=== PATIENT | male | born 1950 | race Caucasian/White ===

== ENCOUNTER 2022-07-17 07:47 | Day surgery (SDC) | payer OTHER, MEDICARE ==
[2022-07-12 16:03] VITALS: BMI 27.9
[2022-07-17] MEDS ORDERED: LIDOCAINE HCL 2% 100 MG/5 ML DISP.SYRIN ONE (08:56)
[2022-07-17] MEDS ORDERED: MIDAZOLAM HCL 2 MG/2 ML SINGLE DOSE VIAL ONE (08:56)
[2022-07-17] MEDS ORDERED: PROPOFOL 20 ML ONE (08:56)
[2022-07-17] MEDS ORDERED: LIDOCAINE HCL 2% (20ML MULTI-DOSE VIAL) ONE (09:37)
[2022-07-17 09:49] VITALS: RESP 16; TEMP 97.6
[2022-07-17 10:06] VITALS: BP 117/62; PULSE 70
== END 2022-07-17 10:06 | disposition home or self-care (01) ==
LOC: FASU 07:47
PROVIDERS: ATTEND Orthopaedic Surgery Hand Surgery
PROC: 01N50ZZ Release Median Nerve, Open Approach (ICD-10-PCS; principal; 2022-07-17 09:11)
DX: G56.01 Carpal tunnel syndrome, right upper limb (principal)
CPT/HCPCS: 82962